=== PATIENT | female | born 1965 | race Caucasian/White ===

== ENCOUNTER → 2022-09-23 08:14 | Outpatient (CLI) | payer OTHER | END | disposition home or self-care (01) | LOC: LAB 08:14 | DX: D53.9 Nutritional anemia, unspecified (principal); E78.00 Pure hypercholesterolemia, unspecified; E03.8 Other specified hypothyroidism; R30.0 Dysuria ==

== ENCOUNTER 2022-12-09 08:11 | Outpatient (CLI) | payer OTHER ==
[2022-12-09 09:37] LABS: URINE APPEARANCE Clear; URINE BILIRRUBIN Negative (NEGATIVE); URINE BLOOD Negative; URINE COLOR Yellow; URINE GLUCOSE Negative (NEGATIVE); URINE LEUKOCYTE Moderate; URINE NITRATE Negative; URINE PROTEIN Negative (NEGATIVE); URINE UROBILINOGEN 0.2 E.U./dl
[2022-12-09 09:41] LABS: URINE BACTERIA 1635.3 uL (0.0-1933); URINE EPITHELIAL CELLS 31.9 uL (0.0-38.8); URINE RBC 5.8 uL (0.0-20.8); URINE WBC 41.2 uL (0.0-23.2)
== END 2022-12-09 08:12 | disposition home or self-care (01) ==
LOC: LAB 08:11
PROVIDERS: ATTEND Internal Medicine
DX: R30.0 Dysuria (principal)

== ENCOUNTER → 2023-01-16 09:14 | Outpatient (CLI) | payer OTHER ==
[2023-01-16 10:38] LABS: MYCOPLASMA PNEUMONIAE IGM NON REACTIVE (NO REACTIVE)
== END | disposition home or self-care (01) ==
LOC: LAB 09:14
DX: Z11.52 Encounter for screening for COVID-19 (principal); Z20.822 Contact with and (suspected) exposure to COVID-19; U07.1 COVID-19; R05.8 Other specified cough; J11.1 Influenza due to unidentified influenza virus with other respiratory manifestations; A49.3 Mycoplasma infection, unspecified site

== ENCOUNTER 2023-05-15 13:05 | Outpatient (CLI) | payer OTHER | END 2023-05-15 13:12 | disposition home or self-care (01) | LOC: SONOGRAMA 13:05 | PROVIDERS: ATTEND Internal Medicine | DX: N18.32 Chronic kidney disease, stage 3b (principal) ==

== ENCOUNTER 2023-12-28 08:22 | Outpatient (CLI) | payer OTHER | END 2023-12-28 08:27 | disposition home or self-care (01) | LOC: SONOGRAMA 08:22 | PROVIDERS: ATTEND Internal Medicine | DX: N18.2 Chronic kidney disease, stage 2 (mild) (principal); Z52.4 Kidney donor ==

== ENCOUNTER 2024-02-27 12:31 | Outpatient (CLI) | payer OTHER | END 2024-02-27 12:36 | disposition home or self-care (01) | LOC: RAD 12:31 | DX: S73.102A Unspecified sprain of left hip, initial encounter (principal); M16.12 Unilateral primary osteoarthritis, left hip ==

== ENCOUNTER 2024-09-27 08:05 | Outpatient (CLI) | payer OTHER ==
[2024-09-27 10:05] LABS: URINE APPEARANCE Clear; URINE BILIRRUBIN Negative (NEGATIVE); URINE BLOOD Negative; URINE COLOR Yellow; URINE GLUCOSE Negative (NEGATIVE); URINE KETONE Negative (NEGATIVE); URINE LEUKOCYTE Small; URINE NITRATE Negative; URINE PROTEIN Negative (NEGATIVE); URINE UROBILINOGEN 0.2 E.U./dl
[2024-09-27 10:07] LABS: MEAN PLATELET VOLUME 9.70 fl (9.4-12.4); RED CELL DISTRIBUTION WIDTH 12.6 % (11.6-14.4)
[2024-09-27 10:10] LABS: BASO % 1.0 % (0.1-1.2); EOS # 0.34 (0.04-0.54); EOS % 5.9 % (0.7-7.0); LYMPH # 2.12 (1.18-3.74); LYMPH % 36.9 % (19.3-53.1); MONO # 0.71 (0.24-0.82); NEUT # 2.50 (1.56-6.13); NEUT % 43.6 % (34.0-71.1)
[2024-09-27 10:11] LABS: URINE BACTERIA 57.5 uL (0.0-1933); URINE EPITHELIAL CELLS 8.9 uL (0.0-38.8); URINE RBC 2.7 uL (0.0-20.8); URINE WBC 21.8 uL (0.0-23.2)
[2024-09-27 10:17] LABS: MONO % 12.4 % (4.7-12.5)
[2024-09-27 10:24] LABS: URINE CAST 0.00 uL (0.0-1.40)
[2024-09-27 10:31] LABS: CREATININE URINE RANDOM 20.90 MG/DL (30-125)
[2024-09-27 10:54] LABS: BUN CREA RATIO 11.0 (7.0-25.0); CHOL HDL RATIO 2.5 (0-5.0); CREATININE SERUM 0.88 mg/dL (0.55-1.02); GFR 65.54; GLUCOSE FASTING 72.0 mg/dL (65-100); HDL 61.0 mg/dl (40-60); LDL 79.0 mg/dl (0-130); OSMOLALITY SERUM 268.0 MOSM/KG (275-295); T4 FREE 1.38 NG/ML (0.76-1.46); TSH 1.52 uIU/mL (0.358-3.74); VLDL 12.0 (0-39)
== END 2024-09-27 08:08 | disposition home or self-care (01) ==
LOC: LAB 08:05
PROVIDERS: ATTEND Internal Medicine
DX: N18.32 Chronic kidney disease, stage 3b (principal); I12.9 Hypertensive chronic kidney disease with stage 1 through stage 4 chronic kidney disease, or unspecified chronic kidney disease; E11.21 Type 2 diabetes mellitus with diabetic nephropathy; E78.2 Mixed hyperlipidemia; E55.9 Vitamin D deficiency, unspecified; E03.8 Other specified hypothyroidism

== ENCOUNTER 2024-09-27 09:00 | Outpatient (CLI) | payer OTHER | END 2024-09-27 09:02 | disposition home or self-care (01) | LOC: RAD 09:00 | DX: M54.2 Cervicalgia (principal); M54.50 Low back pain, unspecified; M54.6 Pain in thoracic spine ==

== ENCOUNTER 2025-01-28 12:25 | Outpatient (CLI) | payer OTHER ==
[2025-01-28 13:04] LABS: BASO % 0.8 % (0.1-1.2); EOS # 0.42 (0.04-0.54); EOS % 4.5 % (0.7-7.0); LYMPH # 2.26 (1.18-3.74); LYMPH % 24.2 % (19.3-53.1); MEAN PLATELET VOLUME 9.40 fl (9.4-12.4); MONO # 0.83 (0.24-0.82); MONO % 8.9 % (4.7-12.5); NEUT # 5.73 (1.56-6.13); NEUT % 61.5 % (34.0-71.1); RED CELL DISTRIBUTION WIDTH 13.6 % (11.6-14.4)
[2025-01-28 13:57] LABS: COVID-19 AG NEGATIVE (NEGATIVE)
== END 2025-01-28 12:28 | disposition home or self-care (01) ==
LOC: LAB 12:25
DX: R05.1 Acute cough (principal); J11.1 Influenza due to unidentified influenza virus with other respiratory manifestations; R07.1 Chest pain on breathing